=== PATIENT | female | born 1980 | race Caucasian/White ===

== ENCOUNTER 2022-02-27 00:27 | Day surgery (SDC) | payer OTHER, SELFPAY ==
[2022-02-12 14:10] VITALS: BMI 22.0
[2022-02-27 10:06] VITALS: BP 110/50; PULSE 65; RESP 16; TEMP 36.6; O2SAT 100
[2022-02-27] MEDS: LACTATED RINGERS 1,000 ML 150 ML IV CONT (10:07)
--- NOTE | 2022-02-27 10:36 | WPDANESEPPF ---
Anes - Initial Pre Proc Eval Procedure: Operation Date: 02/27/22 11:00 Proposed Procedures p Colonoscopy - Jarred Quevedo MD Date/Time: 02/27/22 10:36 Surgeon: Jarred Quevedo MD Pre Op Diagnosis: Rectal bleeding Patient Data Age: 41 Gender: F Height: 1.68 m Weight: 63.9 kg Last Vital Signs Temp 97.8 F 02/27/22 10:06 Pulse 65 02/27/22 10:06 Resp 16 02/27/22 10:06 BP 110/50 L 02/27/22 10:06 Pulse Ox 100 02/27/22 10:06 Allergies Allergy/AdvReac Type Severity Reaction Status Date / Time hydrocodone Allergy Severe Nausea and Verified 02/27/22 10:04 Vomiting erythromycin base Allergy Intermediate Nausea and Verified 02/27/22 10:04 Vomiting acetaminophen [From Vicodin] Allergy Nausea and Verified 02/27/22 10:04 Vomiting Home Medications Medication Instructions Recorded Confirmed Type No Home Medications 01/22/22 02/27/22 History Patient hx anesthesia problems: none Family hx anesthesia problems: none Results Review: All pre-operative results and documents have been reviewed as part of the pre-operative evaluation. [facility] Past Medical History Medical History CLEMENT positive Inflammatory arthritis (~2016) Plantar fasciitis Surgical History Surgical History History of bunionectomy Hx of tonsillectomy Family History Family History Father Family history of diabetes mellitus in first degree relative Family history of type 2 diabetes mellitus Mother Depression Family history of alcoholism Celiac disease Sibling Depression Patient's sister is in good health Grandparent Bone cancer Lung cancer Dementia Other Family history of allergic disorder Family history of eczema Family history of irritable bowel syndrome Family history of migraine headaches Social History Social History Smoking status: Never smoker Alcohol intake: current Drinks per week: 2 Alcohol use details: occasionally Substance use: never Substance use type: does not use Living arrangements: with family Spiritual care concerns: No Anes - Eval Final PreProcedure Day of Procedure 02/27/22 10:36 Patient weight: normal Heart: regular rate and rhythm Lungs: clear to auscultation Airway: Mallampati scale class II Neurological: alert and oriented Last oral intake: >/= 8 hours ASA classification: II Emergent: no Anesthetic plan: proceed Anesthesia type and monitoring: general GIVS and standard monitoring Results Review: All pre-operative results and documents have been reviewed as part of the pre-operative evaluation. Informed Consent: The patient's anesthetic plan and its attendant risks and benefits were discussed with the patient/family/POA. Questions were solicited and answers provided to the satisfaction of the patient/family/POA.
--- NOTE | 2022-02-27 10:36 | PM.HPGS ---
History of Present Illness History of Present Illness Consent: Risks, benefits, and alternatives have been discussed and questions answered. Patient agrees to proceed with procedure. Chief complaint: Rectal bleeding Narrative: Gertrudis Suarez is a 41 year old female with intermittent rectal bleeding, better after used hemorrhoidal treatment but never had colonoscopy Review of Systems Constitutional: Constitutional: Denies headache(s) and Denies weakness Eyes: Eyes: Denies blurry vision ENT: Reports Normal hearing present, Denies headache(s) and Denies neck pain Cardiovascular: Cardiovascular: Denies chest pain and Denies dyspnea Respiratory: Respiratory: Denies dyspnea Gastrointestinal: Gastrointestinal: Reports no additional gastrointestinal complaints Genitourinary: Genitourinary: Denies dysuria Musculoskeletal: Musculoskeletal: Denies neck pain Integumentary/Breasts: Skin/Breast: Denies dry skin Neurologic: Reports Normal hearing present, Denies headache(s) and Denies weakness Psychiatric: Psychiatric: Denies anxiety Endocrine: Endocrine: Denies change in body appearance Hematologic/Lymphatic: Hematologic/Lymphatic: Denies easy bleeding Allergic/Immunologic: Allergic/Immunologic: Denies urticaria PMFSH Past Medical History Medical History CLEMENT positive Inflammatory arthritis (~2016) Plantar fasciitis Surgical History Surgical History History of bunionectomy Hx of tonsillectomy Family History Family History Father Family history of diabetes mellitus in first degree relative Family history of type 2 diabetes mellitus Mother Depression Family history of alcoholism Celiac disease Sibling Depression Patient's sister is in good health Grandparent Bone cancer Lung cancer Dementia Other Family history of allergic disorder Family history of eczema Family history of irritable bowel syndrome Family history of migraine headaches Social History Social History Smoking status: Never smoker Alcohol intake: current Drinks per week: 2 Alcohol use details: occasionally Substance use: never Substance use type: does not use Living arrangements: with family Spiritual care concerns: No Meds Home Medications and Allergies Home Medications Medication Instructions Recorded Confirmed Type No Home Medications 01/22/22 02/27/22 History Allergies Allergy/AdvReac Type Severity Reaction Status Date / Time hydrocodone Allergy Severe Nausea and Verified 02/27/22 10:04 Vomiting erythromycin base Allergy Intermediate Nausea and Verified 02/27/22 10:04 Vomiting acetaminophen [From Vicodin] Allergy Nausea and Verified 02/27/22 10:04 Vomiting Vital Signs Vital Signs - 24 hr 02/27/22 10:06 Temperature 97.8 F Pulse Rate 65 Respiratory Rate 16 Blood Pressure 110/50 L Pulse Oximetry 100 Exam Const: General: comfortable and no acute distress HENMT: General nose exam: Normal nares present Eyes: General: appearance normal, both eyes and all related structures Neck: Neck: no JVD Resp: Auscultation: clear to auscultation bilaterally Cardio: Rate: regular rate Rhythm: regular rhythm GI: Inspection: non-distended GI Palp: Yes Soft to palpation Skin: General skin exam: normal color Neuro: General: gait normal Speech: normal speech Extrem: General: normal to inspection Psych: Mental Status: mental status grossly normal Assessment and Plan Assessment and plan (1) Rectal bleeding: Code(s): K62.5 - Hemorrhage of anus and rectum Status: Acute Assessment and Plan: colonoscopy
[2022-02-27 10:55] VITALS: BP 92/47; PULSE 65; RESP 16; O2SAT 100
[2022-02-27 11:05] VITALS: BP 93/48; PULSE 65; RESP 22; O2SAT 100
[2022-02-27 11:15] VITALS: BP 98/50; PULSE 65; RESP 22; O2SAT 100
== END 2022-02-27 11:38 | disposition home or self-care (01) ==
PROVIDERS: PCP Internal Medicine; Visit Provider Internal Medicine Gastroenterology
PROC: 0DJD8ZZ Inspection of Lower Intestinal Tract, Via Natural or Artificial Opening Endoscopic (ICD-10-PCS; CPT 45378; principal; 2022-02-27 11:00)
DX: K62.5 Hemorrhage of anus and rectum (principal); K57.30 Diverticulosis of large intestine without perforation or abscess without bleeding; K64.8 Other hemorrhoids; K64.4 Residual hemorrhoidal skin tags; M05.9 Rheumatoid arthritis with rheumatoid factor, unspecified
CPT/HCPCS: 45378; J2704; J7120

== ENCOUNTER → 2022-03-01 15:05 | Outpatient (CLI) | payer OTHER, SELFPAY ==
--- NOTE | ~2022-03-01 | MM_ITS ---
EXAMINATION: MM screening hermelindo BI w tigre HISTORY: Screening TECHNIQUE: Craniocaudal and mediolateral oblique 3-D tomosynthesis images were obtained and synthetic 2-D images were generated. CAD analysis was submitted and interpreted. COMPARISON: 11/07/2018 BREAST PARENCHYMAL COMPOSITION: The breasts are heterogenously dense, which may obscure small masses FINDINGS: There is no evidence of suspicious mass, calcification, or architectural distortion to sugg est malignancy in either breast. There has been no suspicious interval change. IMPRESSION: 1. No mammographic evidence of malignancy. 2. Recommend routine screening mammography in one year. BI-RADS Category 1: Negative Reviewed, dictated and finalized at location A.
== END ==
PROVIDERS: PCP Internal Medicine; Visit Provider Nurse Practitioner
DX: Z12.31 Encounter for screening mammogram for malignant neoplasm of breast (principal)
CPT/HCPCS: 77063; 77067

== ENCOUNTER → 2022-03-29 14:26 | Outpatient (CLI) | payer OTHER, SELFPAY ==
--- NOTE | ~2022-03-29 | US_ITS ---
EXAMINATION: US pelvic complete DATE: 03/29/2022 14:40 INDICATION: Excessive and frequent menstruation Comparison:Ultrasound dated 07/04/2016 TECHNIQUE: Multiple transabdominal sonographic images of the pelvis performed. FINDINGS: The uterus measures 10.6 x 4.9 x 6.4 cm. The endometrial complex measures 11 mm. The right ovary measures 3.4 x 2.3 x 3.6 cm and the left ovary measures 3.9 x 2.4 x 3.5 cm. There are small bilateral ovarian cyst measuring 2.3 cm on the right and 2.4 cm on the left. Normal doppler si gnal in both ovaries. There is no free fluid in the pelvis. There are no abnormal masses seen on either side. IMPRESSION: 1. Small bilateral ovarian cysts measuring up to 2.4 cm. Reviewed, dictated and finalized at location B.
== END ==
PROVIDERS: PCP Internal Medicine; Visit Provider Nurse Practitioner
DX: N92.0 Excessive and frequent menstruation with regular cycle (principal); N83.201 Unspecified ovarian cyst, right side; N83.202 Unspecified ovarian cyst, left side
CPT/HCPCS: 76856